=== PATIENT | female | born 1955 | race African-American/Black ===

== ENCOUNTER 2016-11-05 11:02 | Emergency (ER) | payer OTHER ==
[~2016-11-05] VITALS: Ht 157.5 cm; Wt 84.1 kg
[~2016-11-05 11:02] MED LIST: ACET-66 PO; AMIT10TA6 PO; ASPI81 PO; BENA20TA3 PO; COMBIH IH; FLUT1DIS IH; HYDR25TA PO; LOVA20TA3 PO; OMEP20 PO; OSCD250 PO; TRAM50TA4 PO; [UNRECOGNIZED DRUG - OTHER]
[2016-11-05 11:08] VITALS: BP 132/75
[2016-11-05 11:22] LABS: GLUCOSE,POINT OF CARE 146 MG/DL (70-110)
[2016-11-05] MEDS ORDERED: IBUP-1546 PO (11:25)
[2016-11-05] MEDS ORDERED: BECL8.7A5 IH (11:25)
[2016-11-05] MEDS ORDERED: MULT-1259 PO (11:25)
[2016-11-05] MEDS ORDERED: GABA-531 PO (11:25)
[2016-11-05] MEDS ORDERED: VENL-193 PO (11:25)
[2016-11-05] MEDS ORDERED: ASPI81TA42 PO (11:25)
[2016-11-05] MEDS ORDERED: TRAZ-147 PO (11:25)
[2016-11-05] MEDS ORDERED: GLIP5 PO (11:25)
[2016-11-05] MEDS ORDERED: METF500T4 PO (11:25)
[2016-11-05 13:04] LABS: INFLUENZA TYPE B NEGATIVE FOR TYPE B (NEGATIVE)
== END 2016-11-05 12:59 | disposition home or self-care (01) ==
LOC: EMS 11:05
DX: J40 Bronchitis, not specified as acute or chronic (principal); E11.9 Type 2 diabetes mellitus without complications; E78.00 Pure hypercholesterolemia, unspecified; I10 Essential (primary) hypertension
CPT/HCPCS: 71020; 82962; 87804; 99285